=== PATIENT | male | born 1980 | race Caucasian/White ===

== ENCOUNTER 2019-09-20 19:13 | Emergency (ER) | payer SELFPAY ==
[~2019-09-20] VITALS: Ht 182.9 cm; Wt 74.8 kg
[2019-09-20 22:18] VITALS: BP 124/43
== END 2019-09-20 22:18 | disposition home or self-care (01) ==
LOC: ED 19:13
DX: S00.212A Abrasion of left eyelid and periocular area, initial encounter (principal); W22.8XXA Striking against or struck by other objects, initial encounter; Y93.89 Activity, other specified; Y92.89 Other specified places as the place of occurrence of the external cause; Y99.8 Other external cause status